=== PATIENT | female | born 1970 | race Caucasian/White ===

== ENCOUNTER 2019-07-05 13:04 | Emergency (ER) | payer SELFPAY ==
[2019-07-05 13:04] VITALS: BP 111/76; PULSE 70; RESP 18; TEMP 36.6; O2SAT 98; BMI 30.9
--- NOTE | 2019-07-05 13:40 | W.ED.GENADLT ---
HPI - General Adult General: Chief complaint: General Medical Stated complaint: congestion, cough, ear pain Time Seen by Provider: 07/05/19 13:34 History of Present Illness: HPI narrative: Patient complains about right ear pain sinus drainage cough congestion missed school and work and needs note for both for yesterday and today also MD complaint: URI Onset (ago): day(s) Associated symptoms: Reports cough; Deny chest pain, dyspnea, fevers/chills, headache(s), nausea, rash or vomiting Review of Systems Const: Denies: fever, chills or body aches Eyes: Denies: change in vision or blurry vision ENMT: Reports: ear pain and nasal congestion; Denies: throat pain Card: Denies: chest pain or shortness of breath on exertion Resp: Reports: non-productive cough; Denies: shortness of breath or productive cough GI: Denies: abdominal pain, nausea or vomiting Musc: Denies: extremity pain Skin/Breast: Denies: rash Neuro: Denies: headache Psych: Denies: anxiety or depression Aníbal/Lymph: Denies: easy bruising PFSH ED PFSH: Social History Smoking and tobacco status: current every day smoker Physical Exam Const: COMMON NORMALS: no apparent distress, average body habitus and oriented x3 HENMT: COMMON NORMALS: normocephalic and TM's normal bilaterally HEAD & SCALP: normal to inspection and normocephalic FACE & SINUS: normal facial exam and sinus tenderness TYMPANIC MEMBRANE: TM's normal bilaterally Eye: COMMON NORMALS: conjunctivae normal GENERAL EYE: normal appearance of both eyes CONJUNCTIVA: Yes conjunctivae normal Neck/C-Spine: COMMON NORMALS: no JVD Chest: COMMONS NORMALS: inspection of chest normal Resp: COMMON NORMALS: normal respiratory effort and clear to auscultation bilaterally AUSCULTATION: clear to auscultation bilaterally Cardio: COMMON NORMALS: no JVD, regular rate and regular rhythm RATE: regular rate RHYTHM: regular rhythm GI: COMMON NORMALS: normal to inspection, nondistended, normoactive bowel sounds Extremity: COMMON NORMALS: normal to inspection and full ROM Neuro: COMMON NORMALS: oriented x3 Course Vital Signs: Vital signs: Vital Signs Temperature 97.8 F 07/05/19 13:04 Pulse Rate 70 07/05/19 13:04 Respiratory Rate 18 07/05/19 13:04 Blood Pressure 111/76 07/05/19 13:04 Pulse Oximetry 98 07/05/19 13:04 Discharge Plan Discharge Patient Disposition: Home, Self-Care Clinical Impression: Sinusitis Qualifiers: Sinusitis location: maxillary Chronicity: acute Recurrence: recurrent Qualified Code(s): J01.01 - Acute recurrent maxillary sinusitis Condition: Stable Prescriptions: New Zithromax Z-Luis 250 mg tablet See Rx Instructions .ROUTE .COMPLEX Qty: 6 RF: 0 No Action Vistaril 50 mg Capsule 50 mg PO TID RF: 0 Suboxone 2-0.5 mg Film 1 film BUCCAL TID RF: 0 Discharge Orders: Discharge Order (Routine); Ordered 07/05/19 Ordered By: Alexi Friend Discharge Diet: Advance as tolerated Discharge Activity: Resume usual activity Patient Instructions: Upper Respiratory Infection (ED) Activity Restrictions/Additional Instructions: Follow-up with medical provider as directed. Take medications as prescribed. Return to the ER or your medical provider if condition worsens. Please read and understand discharge instructions. If any questions ask please. 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
[2019-07-05 13:59] VITALS: BP 103/66; PULSE 61; RESP 17; O2SAT 94
== END 2019-07-05 14:00 | disposition home or self-care (01) ==
PROVIDERS: Emergency Provider Nurse Practitioner Family
DX: J32.9 Chronic sinusitis, unspecified (principal); F17.200 Nicotine dependence, unspecified, uncomplicated
CPT/HCPCS: 12345; 99281

== ENCOUNTER 2019-12-22 17:13 | Emergency (ER) | payer SELFPAY ==
[2019-12-22 18:00] VITALS: BP 115/78; PULSE 60; RESP 14; TEMP 36.8; O2SAT 99; BMI 34.3
== END 2019-12-22 19:34 | disposition left against medical advice (07) ==
PROVIDERS: Emergency Provider Emergency Medicine
DX: Z53.21 Procedure and treatment not carried out due to patient leaving prior to being seen by health care provider (principal)
CPT/HCPCS: 99281

== ENCOUNTER → 2020-01-12 10:27 | Outpatient (BNVA) | payer OTHER, SELFPAY | PROVIDERS: Visit Provider Nurse Practitioner Family | DX: Z20.828 Contact with and (suspected) exposure to other viral communicable diseases (principal) | CPT/HCPCS: 87635 ==

== ENCOUNTER 2020-02-02 18:32 | Emergency (ER) | payer SELFPAY ==
[2020-02-02 19:09] VITALS: BP 124/82; PULSE 64; RESP 17; TEMP 36.5; O2SAT 100; BMI 34.3
--- NOTE | 2020-02-02 19:27 | ED_ITS ---
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 Patient states she is been applying antibiotic ointment on it at home to help this but has not had any success. She denies any systemic symptoms such as fever or chills. She has mild swelling at the site but the rest of the finger is unremarkable. Patient denies being on any immunosuppressants or having any chronic medical problems. She is unaware of anything else that makes her symptoms better or worse and she has tried Tylenol Motrin for this at home for the mild discomfort that it causes. Associated symptoms: Deny chest pain, dyspnea, headache(s), nausea, palpitations, syncope or vomiting Review of Systems Const: Denies: fever(s) Eyes: Denies: change in vision or blurry vision ENMT: Denies: throat pain, hoarseness or swelling of lips/tongue Card: Denies: chest pain, palpitations, syncope, pre-syncope or dyspnea on exertion Resp: Denies: dyspnea, productive cough, non-productive cough, wheezing, change in phlegm color or hemoptysis GI: Denies: abdominal pain, nausea, vomiting or diarrhea : Denies: flank pain, dysuria, urinary frequency or urinary urgency Musc: Denies: neck pain, back pain or extremity pain Skin/Breast: Reports: skin tenderness and new lesions Neuro: Denies: headache(s), numbness in extremities, weakness in extremities or dizziness Aníbal/Lymph: Denies: easy bruising, easy bleeding, petechiae or purpura All/Imm: Denies: urticaria or throat swelling PFSH ED PFSH: Medical History No pertinent past medical history Surgical History H/O knee surgery H/O: hysterectomy S/P cholecystectomy Social History Smoking and tobacco status: current every day smoker cigarettes Packs smoked pe r day: 1 Quit status (tobacco): not considering quitting Alcohol intake: never History of recent travel: No (EXPOSURE TO POSITIVE CASE) Current gender identity: Female Female Reproductive History: Spontaneous abortions: No Physical Exam Const: COMMON NORMALS: no acute distress, patient oriented x3, no limitations and alert GENERAL APPEARANCE: cooperative HENMT: COMMON NORMALS: normocephalic, atraumatic, external ears normal, EAC's normal and Normal external nose present HEAD & SCALP: normal to inspection, normocephalic and atraumatic FACE & SINUS: normal facial exam and face symmetric NOSE: Normal external nose present and Normal nares present EXTERNAL EAR: Yes external ears normal EXTERNAL AUDITORY CANAL: EAC's normal MOUTH: Normal oral and palatal mucosa present, lip normal and tongue normal Eye: COMMON NORMALS: Equal, round and reactive pupils present and conjunctivae normal GENERAL EYE: appearance normal, both eyes and all related structures ALIGNMENT: Yes alignment normal PERIORBITAL: periorbital findings normal EYELID: eyelids normal CONJUNCTIVA: Yes conjunctivae normal SCLERA: sclerae normal PUPIL: Yes Equal, round and reactive pupils present Neck/C-Spine: COMMON NORMALS: full ROM, no lymphadenopathy, supple, no meningeal signs and no JVD GENERAL: Yes normal visual inspection and Yes trachea midline Chest: COMMONS NORMALS: normal inspection of the chest and normal palpation of entire chest wall Resp: COMMON NORMALS: normal respiratory effort, No retractions, No use of accessory muscles and clear to auscultation bilaterally EFFORT & INSPECTION: Yes able to speak in complete sentences and Yes symmetric chest movement AUSCULTATION: clear to auscultation bilaterally, no crackles, no rales, no rhonchi and no wheezes Cardio: COMMON NORMALS: no JVD, regular rate, regular rhythm, S1 normal heart sound present and S2 normal heart sound present RATE: regular rate RHYTHM: regular rhythm HEART SOUNDS: S1 normal heart sound present, S2 normal heart sound present, no click, no gallops, no murmurs and no rubs GI: COMMON NORMALS: Soft to palpation and No hepatosplenomegaly present PALPATION: Yes Soft to palpation, No Tenderness to palpation present (GI), No Guarding due to palpation present (GI), No Rigid due to palpation, Yes No hepatosplenomegaly present, No Hernia present, No Palpable mass present and No Pulsatile mass present : COMMON NORMALS: Yes no CVA tenderness BLADDER/KIDNEY EXAM: Yes no CVA tenderness EXTERNAL FEMALE EXAM: No Hernia present Back/Pelvis: COMMON NORMALS: no CVA tenderness, thoracic and lumbar spine normal to inspection, no thoracic nor lumbar tenderness and thoraco-lumbar ROM normal Extremity: COMMON NORMALS: normal to inspection, full ROM, capillary refill normal, no joint enlargement, no clubbing, cyanosis or edema and no calf tenderness Neuro: COMMON NORMALS: patient oriented x3, CN's II-XII intact bilaterally, moves all extremities, no focal motor deficits and no sensory deficits noted SENSORIUM/ORIENTATION: Yes alert MENINGEAL SIGNS: Yes no meningeal signs SPEECH: speech normal Psych: COMMON NORMALS: mental status grossly normal, Normal thought process present, cooperative, normal affect, speech normal and activity/motor behavior normal SPEECH: Yes normal speech THOUGHT PROCESS: Normal thought process present Skin: COMMON NORMALS: turgor normal, no jaundice, no petechiae and no mottling NARRATIVE SKIN EXAM: Left index finger with mild swelling and sore to the dorsal aspect. No active drainage. Localized swelling but no circumferential swelling of the finger. No streaking up the arm. GENERAL SKIN EXAM: turgor normal Course Vital Signs: Vital signs: Vital Signs Temperature 97.7 F 02/02/20 19:09 Pulse Rate 64 02/02/20 19:09 Respiratory Rate 17 02/02/20 19:09 Blood Pressure 124/82 02/02/20 19:09 Pulse Oximetry 100 02/02/20 19:09 MDM - General Adult MDM Narrative: Medical decision making narrative: Luisa is a very nice 50-year-old female who comes in complaining of a cat scratch to her left index finger. This appears as early skin infection possibly cat scratch disease. She is intolerant of penicillin secondary to allergy so I will place her on Zithromax and Cipro which by the [place] guide was the next appropriate for cat scratch disease. The patient agrees to return should her symptoms change or worsen and we did review those reasons in detail. At this time I see no sign of sepsis, flexor tenosynovitis or more severe infection. Discharge Plan Discharge Patient Disposition: Home Clinical Impression: Cat-scratch disease Condition: Stable Prescriptions: New Zithromax Z-Luis 250 mg tablet See Rx Instructions .ROUTE .COMPLEX Qty: 6 RF: 0 Cipro 500 mg tablet 500 mg PO BID Qty: 20 RF: 0 No Action doxepin 75 mg capsule 75 mg PO DAILY RF: 0 baclofen 10 mg tablet 10 mg PO TID RF: 0 Vistaril 50 mg Capsule 50 mg PO TID RF: 0 Suboxone 2-0.5 mg Film 1 film BUCCAL TID RF: 0 Discharge Orders: Discharge Order (Routine); Ordered 02/02/20 Ordered By: Farzana Arthur Referrals: Linda Clement DO [Physician] - 1-3 days Discharge Diet: Usual diet Discharge Activity: Increase activity as tolerated Patient Instructions: Cat Scratch Disease (ED) Activity Restrictions/Additional Instructions: Please return to the ER immediately for any of the signs or symptoms listed on your discharge instruction sheets, worsening/changing of your symptoms, you are not getting better as quickly as expected, or for ANY other cause or concerns. Return to the ER for fever, vomiting, increased pain, increased swelling, or for any other cause for concern. Be certain to take your antibiotics to completion and follow-up with your primary care doctor or Dr. Clement or the doctor of you r choice for recheck. 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
[2020-02-02] MEDS: azithromycin 250 mg Tablet 500 MG PO (19:37)
[2020-02-02] MEDS: ciprofloxacin 500 mg Tablet PO (19:37)
== END 2020-02-02 19:41 | disposition home or self-care (01) ==
PROVIDERS: Emergency Provider Emergency Medicine
DX: A28.1 Cat-scratch disease (principal); F17.210 Nicotine dependence, cigarettes, uncomplicated
CPT/HCPCS: 12345; 99281; 99282; Q0144